=== PATIENT | male | born 1930 | race Caucasian/White ===

== ENCOUNTER 2017-08-13 06:46 | Inpatient (IN) | payer MEDICARE, OTHER ==
[~2017-08-13] VITALS: Ht 167.6 cm; Wt 71.2 kg
[~2017-08-13 06:46] MED LIST: ALLO300T PO; ASPI-515 PO; CA C1TAB60 PO; CHOL200040 PO; CLIN300C8 PO; ERYT60SO EACHEYE; ESOM20CA PO; ESOM20VI PO; FAMO20TA7 PO; GABA-826 PO; GUAI600T31 PO; HYDR12.53 PO; LEVO125C2 PO; LEVO25TA4 PO; LEVO50TA5 PO; LIDO700A30 TD; LISI-170 PO; MAGN300C PO; METO25TA35 PO; MOME17SP NAS; MOME17SP NS; PRAV80TA2 PO; PRED20TA PO; PRED5TAB PO; SUCR1TAB33 PO; TRIA15CR53 TP
[2017-08-13] MEDS ORDERED: ASPIRIN 81 MG TABLET CHEW PO ONE (07:30)
[2017-08-13] MEDS ORDERED: SODIUM CHLORIDE FLUSH 10ML SYR IVF ONE (07:30)
[2017-08-13 07:32] LABS: HEMATOCRIT 48.4 % (39.2-51.8); HEMOGLOBIN 16.1 g/dL (13.7-18.0); WHITE BLOOD COUNT 9.9 x10^3/uL (3.4-10)
[2017-08-13 07:45] LABS: ASPARTATE AMINO TRANSFERASE 22 U/L (15-37); BLOOD UREA NITROGEN 29 mg/dL (7-18)
[2017-08-13] MEDS ORDERED: ASPIRIN 81 MG TABLET CHEW ONE (07:47)
[2017-08-13 07:52] LABS: IS PT STATUS REG ER OR PRE ER? YES
[2017-08-13] MEDS ORDERED: MOME13HF INH (08:35)
[2017-08-13] MEDS ORDERED: LOSA25TA5 PO (08:35)
[2017-08-13] MEDS ORDERED: MAGN1TAB PO (08:35)
[2017-08-13] MEDS ORDERED: ACETAMINOPHEN 325 MG TABLET PO PRN (10:00)
[2017-08-13] MEDS ORDERED: ONDANSETRON ODT 4 MG PO PRN (10:00)
[2017-08-13] MEDS ORDERED: LIDOCAINE 2%, 20ML ONE (10:21)
[2017-08-13 11:20] VITALS: BP 100/64
[2017-08-13] MEDS: ENOXAPARIN 40 MG/0.4 ML SQ SCH (12:58)
[2017-08-13 14:00] VITALS: BP 114/56
[2017-08-13] MEDS: METOPROLOL TARTRATE 25 MG TABLET PO SCH (19:47)
[2017-08-13] MEDS: PRAVASTATIN 40 MG TABLET PO SCH (19:48)
[2017-08-13] MEDS: LEVOTHYROXINE 50 MCG TABLET PO SCH (20:14)
[2017-08-13] MEDS: MAGNESIUM OXIDE 400 MG TABLET PO SCH (20:14)
[2017-08-13 20:33] VITALS: BP 99/55
[2017-08-14] VITALS (7 sets, daily range): BP systolic 100–124; BP diastolic 51–71
[2017-08-14] MEDS: CALCIUM CARBONATE 500 MG TAB.CHEW PO PRN ×2 (00:32→22:49)
[2017-08-14 07:21] LABS: ASPARTATE AMINO TRANSFERASE 11 U/L (15-37); BLOOD UREA NITROGEN 31 mg/dL (7-18)
[2017-08-14 07:25] LABS: LACTATE DEHYDROGENASE 154 U/L (87-241)
[2017-08-14 07:28] LABS: IS PT STATUS REG ER OR PRE ER? YES
[2017-08-14 07:42] LABS: HEMATOCRIT 45.4 % (39.2-51.8); HEMOGLOBIN 14.8 g/dL (13.7-18.0); WHITE BLOOD COUNT 9.4 x10^3/uL (3.4-10)
[2017-08-14] MEDS: METOPROLOL TARTRATE 25 MG TABLET PO SCH ×2 (08:20→21:20)
[2017-08-14] MEDS: LOSARTAN 25MG TABLET PO SCH (08:20)
[2017-08-14] MEDS: ASPIRIN 81 MG TABLET EC PO SCH (08:20)
[2017-08-14] MEDS: HYDROCHLOROTHIAZIDE 12.5 MG CAPSULE PO SCH (08:21)
[2017-08-14] MEDS: FAMOTIDINE 20 MG TABLET PO SCH (08:21)
[2017-08-14] MEDS: ALLOPURINOL 300 MG TABLET PO SCH (08:22)
[2017-08-14] MEDS: CHOLECALCIFEROL 1,000 UNIT TABLET PO SCH (08:22)
[2017-08-14] MEDS ORDERED: LEVOTHYROXINE 50 MCG TABLET PO SCH (09:00)
[2017-08-14] MEDS: ENOXAPARIN 40 MG/0.4 ML SQ SCH (11:04)
[2017-08-14] MEDS: CEFTRIAXONE PMX 1GM/50ML 50 ML IV SCH (13:08)
[2017-08-14] MEDS: AZITHROMYCIN 500 MG in SODIUM CHLORIDE 0.9% 250 ML IV SCH (13:08)
[2017-08-14 13:50] LABS: IS PT STATUS REG ER OR PRE ER? NO
[2017-08-14] MEDS: MAGNESIUM OXIDE 400 MG TABLET PO SCH (15:33)
[2017-08-14 19:39] LABS: IS PT STATUS REG ER OR PRE ER? NO
[2017-08-14] MEDS: PRAVASTATIN 40 MG TABLET PO SCH (21:19)
[2017-08-14] MEDS: LEVOTHYROXINE 50 MCG TABLET PO SCH (21:20)
[2017-08-14] MEDS ORDERED: POTASSIUM CHLORIDE 20 MEQ TAB.ER.PRT PO ONE (22:00)
[2017-08-15 02:02] VITALS: BP 118/63
[2017-08-15 05:29] LABS: BLOOD UREA NITROGEN 36 mg/dL (7-18)
[2017-08-15 08:00] VITALS: BP 142/73
[2017-08-15] MEDS: CHOLECALCIFEROL 1,000 UNIT TABLET PO SCH (09:32)
[2017-08-15] MEDS: ALLOPURINOL 300 MG TABLET PO SCH (09:33)
[2017-08-15] MEDS: FAMOTIDINE 20 MG TABLET PO SCH (09:33)
[2017-08-15] MEDS: ASPIRIN 81 MG TABLET EC PO SCH (09:33)
[2017-08-15] MEDS: HYDROCHLOROTHIAZIDE 12.5 MG CAPSULE PO SCH (09:33)
[2017-08-15] MEDS: LOSARTAN 25MG TABLET PO SCH (09:33)
[2017-08-15] MEDS: METOPROLOL TARTRATE 25 MG TABLET PO SCH (09:33)
[2017-08-15] MEDS ORDERED: ENOXAPARIN 30 MG/0.3 ML SQ SCH (11:00)
[2017-08-15 12:00] VITALS: BP 100/61
[2017-08-15] MEDS: CEFTRIAXONE PMX 1GM/50ML 50 ML IV SCH (12:47)
[2017-08-15] MEDS: AZITHROMYCIN 500 MG in SODIUM CHLORIDE 0.9% 250 ML IV SCH (13:00)
[2017-08-15] MEDS ORDERED: CEFD300C37 PO (14:37)
[2017-08-15] MEDS ORDERED: DOXY100T PO (14:37)
== END 2017-08-15 17:02 | disposition home or self-care (01) | DRG 682 ==
LOC: ED 08:18 → EDIP 09:44 → 3NE 11:21 → 4WST 08-14 10:58
PROVIDERS: ADMIT Hospitalist; ATTEND Hospitalist
PROC: 0W993ZZ Drainage of Right Pleural Cavity, Percutaneous Approach (ICD-10-PCS; principal; 2017-08-13)
DX: N17.0 Acute kidney failure with tubular necrosis (principal); J18.9 Pneumonia, unspecified organism; J90 Pleural effusion, not elsewhere classified; I13.0 Hypertensive heart and chronic kidney disease with heart failure and stage 1 through stage 4 chronic kidney disease, or unspecified chronic kidney disease; I50.32 Chronic diastolic (congestive) heart failure; G62.9 Polyneuropathy, unspecified; N18.3 Chronic kidney disease, stage 3 (moderate); E03.9 Hypothyroidism, unspecified; E55.9 Vitamin D deficiency, unspecified; E78.5 Hyperlipidemia, unspecified; G51.3 Clonic hemifacial spasm; K21.9 Gastro-esophageal reflux disease without esophagitis; K22.70 Barrett's esophagus without dysplasia; K44.9 Diaphragmatic hernia without obstruction or gangrene; M10.9 Gout, unspecified; M19.90 Unspecified osteoarthritis, unspecified site; Z79.52 Long term (current) use of systemic steroids; Z80.1 Family history of malignant neoplasm of trachea, bronchus and lung; Z82.49 Family history of ischemic heart disease and other diseases of the circulatory system; Z85.46 Personal history of malignant neoplasm of prostate; Z87.891 Personal history of nicotine dependence; Z90.79 Acquired absence of other genital organ(s); Z96.642 Presence of left artificial hip joint
CPT/HCPCS: 32555; 36415; 71010; 71250; 80048; 80053; 82945; 83615; 83735; 83880; 83986; 84157; 84443; 84484; 85025; 87040; 87070; 87075; 87116; 87205; 87206; 88112; 88305; 89051; 93005; 93306; 99285; J0456; J0696; J1650; J3490; J7050; J7512

== ENCOUNTER → 2017-09-13 | Outpatient (CLI) | payer MEDICARE, OTHER ==
[~2017-09-13] MED LIST changes: +CEFD300C37 PO; +DOXY100T PO; +LOSA25TA5 PO; +MAGN1TAB PO; +MOME13HF INH
== END | disposition home or self-care (01) ==
LOC: CFH 09:21
PROVIDERS: ATTEND Internal Medicine
DX: J90 Pleural effusion, not elsewhere classified (principal); I70.0 Atherosclerosis of aorta; K44.9 Diaphragmatic hernia without obstruction or gangrene; M19.011 Primary osteoarthritis, right shoulder; M47.896 Other spondylosis, lumbar region
CPT/HCPCS: 71020

== ENCOUNTER → 2017-11-20 | Outpatient (CLI) | payer MEDICARE, OTHER | END | disposition home or self-care (01) | LOC: CVU 09:35 | PROVIDERS: ATTEND Internal Medicine Cardiovascular Disease | DX: I08.2 Rheumatic disorders of both aortic and tricuspid valves (principal); J90 Pleural effusion, not elsewhere classified; I10 Essential (primary) hypertension; I44.7 Left bundle-branch block, unspecified; E78.5 Hyperlipidemia, unspecified | CPT/HCPCS: 71046; 93306 ==